=== PATIENT | female | born 1970 | race Caucasian/White ===

== ENCOUNTER 2019-07-11 07:50 | Day surgery (SDC) | payer BC ==
[~2019-07-11 07:50] MED LIST: Lactated Ringers 1,000 ML IV SCH; Sodium Chloride 0.9% 10 ML Syringe FLUSH PRN
[2019-07-11] MEDS ORDERED: fentaNYL 100 MCG/2 ML SDV ONE ×2 (08:29→09:20)
[2019-07-11] MEDS ORDERED: Midazolam 1 MG/ML 2 ML SDV ONE ×2 (08:30→09:20)
[2019-07-11] MEDS ORDERED: Propofol 200 MG/20 ML SDV ONE ×2 (08:31→09:20)
[2019-07-11] MEDS ORDERED: Ondansetron 4 MG/2 ML SDV IVPUSH ONE (09:00)
[2019-07-11] MEDS ORDERED: Ketamine 500 mg/10 ML MDV ONE ×2 (09:16→09:20)
[2019-07-11] MEDS ORDERED: Scopolamine 1.5 MG Transdermal Patch ONE ×2 (09:16→09:20)
[2019-07-11] MEDS ORDERED: Ondansetron 4 MG/2 ML SDV ONE (09:20)
[2019-07-11] MEDS ORDERED: Bupivacaine 0.25%/EPINEPHrine 1:200,000 30 ML SDV INJECT ONE (09:39)
[2019-07-11] MEDS ORDERED: ceFAZolin 1 GM Vial ONE (09:46)
--- NOTE | 2019-07-11 10:52 | PCM.HP.2 ---
H&P History of Present Illness - General Date of Service: 07/11/19 Source of Information: Patient, Old Records History Limitations: Reports: No Limitations - History of Present Illness Initial Comments - Free Text/Narative: Has had increasing symptoms of pain and bulging from right inguinal hernia. Onset of Symptoms: Reports: Gradual - Related Data Allergies/Adverse Reactions: Allergies Allergy/AdvReac Type Severity Reaction Status Date / Time No Known Allergies Allergy Verified 07/11/19 01:21 Home Medications: Home Meds Adapalene [Differin] 45 gm TP BEDTIME PRN 07/11/19 [History] Famotidine [Pepcid] 20 mg PO DAILY 07/11/19 [History] Gabapentin [Neurontin] 100 mg PO ASDIRECTED PRN 07/11/19 [History] Multivit-Minerals/Folic Acid [One-A-Day Cholesterol Plus] 1 cap PO DAILY [History] [place]-3 Fatty Acids [Maxepa] 1,000 mg PO DAILY 07/11/19 [History] Plant Stanol Giovana [Cholest Off] 450 mg PO DAILY 07/11/19 [History] Scopolamine [Transderm-Scop] 1 patch TD Q3D PRN 07/11/19 [History] Spironolactone [Aldactone] 100 mg PO DAILY 07/11/19 [History] Zinc 100 mg PO DAILY 07/11/19 [History] Past Medical History Gastrointestinal History: Reports: Other (See Below) Other Gastrointestinal History: Inguinal hernia CHEF UNDER History: Reports: Endometriosis, Fibroids Musculoskeletal History: Reports: Back Pain, Chronic, Other (See Below) Other Musculoskeletal History: Left hip pain. DDD. Displacement of lumbar intervertebral disc without myelopathy. Spondylolisthesis at L4-L5 level and L4 -S1 Oncologic (Cancer) History: Reports: Other (See Below) Other Oncologic History: Breast cancer in first degree relative. Fibrocystic breast. Microcalcification of Left breast on mammogram. Increased risk of breast cancer Dermatologic History: Reports: Other (See Below) Other Dermatologic History: Acne. h/o cold sores - Past Surgical History HEENT Surgical History: Reports: Other (See Below) Other HEENT Surgeries/Procedures: [place] tooth extraction Female Surgical History: Reports: Hysterectomy, Other (See Below) Other Female Surgeries/Procedures: Laparoscopy x 2 endometriosis Social & Family History - Tobacco Use Smoking Status *Q: Never Smoker H&P Review of Systems - Review of Systems: Review Of Systems: Comprehensive ROS is negative, except as noted in HPI. Exam - Exam Exam: See Below - Vital Signs Vital Signs: Last Vital Signs Temp 97.9 F 07/11/19 08:08 Pulse 66 07/11/19 08:08 Resp 16 07/11/19 08:08 BP 116/72 07/11/19 08:08 Pulse Ox 100 07/11/19 08:08 Weight: 55.792 kg - Exam General: Alert Lungs: Clear to Auscultation, Normal Respiratory Effort Cardiovascular: Regular Rate, Regular Rhythm GI/Abdominal Exam: Soft, Non-Tender, Hernia (reducible R IH) Sepsis Event Note - Focused Exam Vital Signs: Vital Signs Temp Pulse Resp BP Pulse Ox 07/11/19 08:08 97.9 F 66 16 116/72 100 Date Exam was Performed: 07/11/19 Time Exam was Performed: 10:49 Problem List Initiated/Reviewed/Updated: Yes Orders Last 24hrs: Active Orders 24 hr Category Date Time Status Lactated Ringers [Ringers, Lactated] 1,000 ml Med 07/11/19 07:15 Active IV ASDIRECTED Sodium Chloride 0.9% [Saline Flush] Med 07/11/19 07:14 Active 10 ml FLUSH ASDIRECTED PRN Saline Lock Insert [OM.PC] Routine Oth 07/11/19 07:14 Ordered Medication Orders Lactated Ringer's (Ringers, Lactated) 1,000 mls @ 125 mls/hr IV ASDIRECTED LULY Last Admin: 07/11/19 08:44 Dose: 125 mls/hr Sodium Chloride (Saline Flush) 10 ml FLUSH ASDIRECTED PRN PRN Reason: Keep Vein Open Assessment/Plan Comment:: [place] Inguinal Hernia, worsening pain Will Proceed wtih R IH repair with mesh Reviewed procedure, risks and complications, consent obtained
--- NOTE | 2019-07-11 10:53 | PCM.OPNOTE ---
- General Post-Op/Procedure Note Date of Surgery/Procedure: 07/11/19 Operative Procedure(s): R IH with mesh Findings: indirect hernia Pre Op Diagnosis: R IH Post-Op Diagnosis: Same Anesthesia Technique: Local, MAC Primary Surgeon: Thom Xavier Anesthesia Provider: Izabela AYALA in mLs: 5 Complications: None Condition: Good
[2019-07-11] MEDS ORDERED: Ketorolac 30 MG/ML SDV IVPUSH ONE (11:01)
--- NOTE | 2019-07-11 13:43 | OR ---
Date of Procedure: 07/11/2019 PREOPERATIVE DIAGNOSIS: Right inguinal hernia. POSTOPERATIVE DIAGNOSIS: Right inguinal hernia, indirect. PROCEDURE: Right inguinal hernia with mesh. ANESTHESIA: Local MAC. PROCEDURE IN DETAIL: The patient was brought to the operating room after surgical site had been initialed and verified by myself and the patient. IV sedation was administered. Her right groin area was prepped with ChloraPrep and draped sterilely. IV Ancef had been given. A 50:50 mixture of 1% lidocaine and 0.25% Marcaine with epinephrine were injected in her medial to the anterior superior iliac crest and along the surgical site. A routine hernia incision was made above the inguinal ligament and extended to the external fascia which was opened in line with the external ring. The ilioinguinal nerve was identified and retracted superiorly and protected from injury. The round ligament was dissected off the pubic tubercle and a Dorena drain placed around this. A moderate-sized cord lipoma was dissected off this down to the level of the internal ring and transected at its base and tied with 3-0 Vicryl. The round ligament was then further dissected and an indirect hernia sac was present. I ligated the round ligament between clamps and tied with 3-0 Vicryl. The round ligament and hernia sac were reduced and the internal ring oversewn with 3-0 Vicryl. A routine hernia incision was then made by cutting a piece of polypropylene mesh to size and securing this to the pubic tubercle with 0 Prolene. A few more interrupted sutures were used to secure this to Jef's ligament inferiorly and then a transition stitch made to the shelving edge of Poupart's ligament medial to the femoral vein. After the inferior edge was completely secured, a cut was made on the superior side to allow the ilioinguinal nerve to lay without any tension. The cut in the mesh was then re- closed with 0 Prolene and the superior edge of the mesh secured to the muscle with 0 Prolene providing a tension-free repair. The lateral edge of the mesh was tucked beneath the external fascia. The wound was thoroughly irrigated with Ancef and saline and return was clear and hemostasis was assured. External fascia was closed with a running 3-0 Vicryl. Subcutaneous tissue was reapproximated with 3-0 Vicryl and skin closed with a running 4-0 Vicryl subcuticular suture. Benzoin and Steri-Strips were placed, and a sterile dressing applied. Patient tolerated the procedure well. Estimated blood loss was less than 5 mL. She returned to Postanesthesia in stable condition. KACY AGEE MD /[id number]
== END 2019-07-11 12:40 | disposition home or self-care (01) ==
LOC: LL.SDS 07:50
PROVIDERS: ATTEND Surgery
DX: K40.90 Unilateral inguinal hernia, without obstruction or gangrene, not specified as recurrent (principal)
CPT/HCPCS: A9270-GY; C1781; J0690; J1885; J2001; J2250; J2405; J2704; J3010; J7120